=== PATIENT | male | born 1965 | race Caucasian/White ===

== ENCOUNTER 2018-06-07 13:40 | Emergency (ER) | payer MEDICAID ==
[~2018-06-07] VITALS: Ht 175.3 cm; Wt 77.1 kg
[~2018-06-07 13:40] MED LIST: HYDR1CAP2 PO
--- OUTSIDE RECORDS SUMMARY | 2018-06-07 13:49 | XMS REPORT ---
Author Author LANA RUIZ Organization [facility] Address [address] [place] [address] Care Team Providers Care Customer Project Manager Name Role Phone LANA RUIZ Unavailable PROBLEMS Type Condition ICD9-CM Code [id number] Code Onset Dates Condition Status SNOMED Code Problem Primary hypertension I10 Active [id number] ALLERGIES No Information ENCOUNTERS Encounter Location Date Diagnosis [facility] [id number] [place] [phone] Mar, [facility] [id number] [place] [address] [phone] Mar, Primary hypertension I10 [facility] [id number] [place] [address] [phone] Feb, [facility] [id number] [place] [address] [phone] Feb, Primary hypertension I10 [facility] [id number] [place] [address] [phone] Feb, [facility] [id number] [place] [phone] Feb, Right facial swelling R22.0 IMMUNIZATIONS No Known Immunizations SOCIAL HISTORY Never Assessed REASON FOR VISIT Medication question PLAN OF CARE VITAL SIGNS MEDICATIONS Unknown Medications RESULTS No Results PROCEDURES No Known procedures INSTRUCTIONS MEDICATIONS ADMINISTERED No Known Medications MEDICAL (GENERAL) HISTORY Type Description Date Surgical History No Surgical history information
--- OUTSIDE RECORDS SUMMARY | 2018-06-07 13:49 | XMS REPORT ---
Author Author LANA RUIZ Organization [facility] Address [address] [place] [address] Care Team Providers Care Relations Director Name Role Phone LANA RUIZ Unavailable PROBLEMS Type Condition ICD9-CM Code [id number] Code Onset Dates Condition Status SNOMED Code Problem Primary hypertension I10 Active [id number] ALLERGIES No Information ENCOUNTERS Encounter Location Date Diagnosis [facility] [id number] [place] [phone] Mar, [facility] [id number] [place] [address] [phone] Feb, [facility] [id number] [place] [address] [phone] Feb, Primary hypertension I10 [facility] [id number] [place] [address] [phone] Feb, [facility] [id number] [place] [phone] Feb, Right facial swelling R22.0 IMMUNIZATIONS No Known Immunizations SOCIAL HISTORY Never Assessed REASON FOR VISIT Requests return call PLAN OF CARE VITAL SIGNS MEDICATIONS Unknown Medications RESULTS No Results PROCEDURES No Known procedures INSTRUCTIONS MEDICATIONS ADMINISTERED No Known Medications MEDICAL (GENERAL) HISTORY Type Description Date Surgical History No Surgical history information
--- OUTSIDE RECORDS SUMMARY | 2018-06-07 13:49 | XMS REPORT ---
Author Author LANA RUIZ Organization [facility] Address [address] [place] [address] Care Team Providers Care Double End Tenoner Operator Name Role Phone LANA RUIZ Unavailable PROBLEMS Type Condition ICD9-CM Code [id number] Code Onset Dates Condition Status SNOMED Code Problem Primary hypertension I10 Active [id number] ALLERGIES No Known Allergies ENCOUNTERS Encounter Location Date Diagnosis [facility] [address] [phone] Mar, [facility] [address] [phone] Feb, [facility] [address] [phone] Feb, Primary hypertension I10 [facility] [address] [phone] Feb, [facility] [id number] [place] [phone] Feb, Right facial swelling R22.0 IMMUNIZATIONS No Known Immunizations SOCIAL HISTORY Never Assessed REASON FOR VISIT HIGH BLOOD PRESSURE -- since tuesday03/05/18 Jesus RAHMAN , have keep record of BP highest 179/124 //// lowest 144/82 - KPasuzanna RAHMAN , severe headaches/ face turns red / denies symptoms of chest pain or dizzyness or shortness of breath - Jesus RAHMAN PLAN OF CARE Activity Details Follow Up 4 Weeks Reason: VITAL SIGNS Height 68 in 2018-03-07 Weight 139.8 lbs 2018-03-07 Temperature 98.3 degrees Fahrenheit 2018-03-07 Heart Rate 92 bpm 2018-03-07 Respiratory Rate 20 2018-03-07 BMI 21.25 kg/m2 2018-03-07 Blood pressure systolic 144 mmHg 2018-03-07 Blood pressure diastolic 82 mmHg 2018-03-07 MEDICATIONS Medication Instructions Dosage Frequency Start Date End Date Duration Status Metoprolol Tartrate 25 MG Orally Twice a day 1 tablet with food 12h 20 Feb 30 day(s) Active Amoxicillin 400 MG/5ML Orally 2 times a day 11 ml 12h 18 Feb, 2018 10 days Active RESULTS No Results PROCEDURES No Known procedures INSTRUCTIONS MEDICATIONS ADMINISTERED No Known Medications MEDICAL (GENERAL) HISTORY Type Description Date Surgical History No Surgical history information
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
[2018-06-07] MEDS ORDERED: HYDROcodone/APAP 5 MG/325 MG (LORTAB) TAB PO STA (14:13)
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
--- NOTE | 2018-06-07 14:40 | Diagnostic Imaging Report ---
INDICATION: Fall, left-sided pain. Surface marker is placed at the region of maximal complaint. The rib segments at that level appeared normal. The remaining ribs also normal. No lung contusion, pneumothorax or hemothorax. There is no free air beneath the diaphragms. IMPRESSION: Negative left rib series. Dictated by: Dictated on workstation # [id number]
[2018-06-07] MEDS ORDERED: ACHD5005 PO (15:00)
[2018-06-07 15:03] VITALS: BP 138/95
== END 2018-06-07 15:03 | disposition home or self-care (01) ==
LOC: EDUNIT# 13:40 → ER 13:46
DX: S20.212A Contusion of left front wall of thorax, initial encounter (principal); W01.198A Fall on same level from slipping, tripping and stumbling with subsequent striking against other object, initial encounter
CPT/HCPCS: 71100

== ENCOUNTER → 2018-08-01 | Outpatient (CLI) | payer MEDICAID ==
[~2018-08-01] MED LIST changes: +ACHD5005 PO
--- NOTE | 2018-08-01 17:21 | Diagnostic Imaging Report ---
INDICATION: Knee pain. TIME OF EXAM: 4:53 PM FINDINGS: Three views left knee were obtained. Alignment is normal. Joint spaces are well maintained. The articular surfaces are smooth. No fracture, dislocation or effusion is seen. IMPRESSION: No acute bony abnormality is detected. Dictated by: Dictated on workstation # [id number]
== END ==
LOC: RAD FS 16:56
PROVIDERS: ATTEND Physician Assistant
DX: M25.562 Pain in left knee (principal)
CPT/HCPCS: 73562

== ENCOUNTER 2020-01-14 14:51 | Emergency (ER) | payer MEDICAID ==
[~2020-01-14] VITALS: Ht 157 cm; Wt 67.0 kg
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
[2020-01-14 15:16] VITALS: BP 158/101
== END 2020-01-14 15:16 | disposition home or self-care (01) ==
LOC: EDUNIT# 14:51 → ER 14:52
DX: S09.90XA Unspecified injury of head, initial encounter (principal); Y04.8XXA Assault by other bodily force, initial encounter